=== PATIENT | female | born 2000 | race Caucasian/White ===

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

== ENCOUNTER → 2018-02-15 | Outpatient (CLI) | payer MEDICAID, OTHER ==
--- NOTE | 2018-02-15 17:57 | Diagnostic Imaging Report ---
PROCEDURE: US Non-ob pelvis comp/trans. TECHNIQUE: Multiple realtime grayscale images were obtained of the pelvis in various projections endovaginally. Transabdominal imaging was also performed. INDICATION: Right-sided pelvic pain. FINDINGS: The uterus measures 7.3 x 4.3 x 3.3 cm. The endometrium is 5 mm in thickness. No uterine mass is identified. The right ovary measures 3.8 x 3.6 x 2.7 cm. There is a septated cyst in the right ovary measuring 3.1 x 1.9 x 2.8 cm. There is blood flow to the right ovary. Left ovary was not visualized. There is a small amount of free fluid present. IMPRESSION: Septated right ovarian cyst. There is a small amount of free fluid. The left ovary was not visualized. Dictated by: Dictated on workstation # [id number]
== END ==
LOC: RAD 13:31
PROVIDERS: ATTEND Family Medicine
DX: N83.291 Other ovarian cyst, right side (principal)
CPT/HCPCS: 76830; 76856

== ENCOUNTER → 2018-04-17 | Outpatient (CLI) | payer OTHER, MEDICAID ==
--- NOTE | 2018-04-17 17:14 | Diagnostic Imaging Report ---
PROCEDURE: US OB SINGLE FETUS <14 WKS. TECHNIQUE: Multiple real-time grayscale images were obtained over the gravid uterus in various projections. INDICATION: dating. FINDINGS: There is an intrauterine gestational sac containing a pole. Vega-rump length measurement is approximately 16 mm consistent with 8 weeks 1 day. heart rate was recorded at 174 beats per minute. No perigestational sac hemorrhage is seen. Gestational sac shows normal shape. Adnexa are unremarkable. No adnexal mass or free fluid is seen. IMPRESSION: Single live IUP 8 weeks 1 day gestational age with an estimated date of confinement sonographically of 11/26/2018. No complicating features are detected. Dictated by: Dictated on workstation # [id number]
== END ==
LOC: RAD 15:14
PROVIDERS: ATTEND Family Medicine
DX: Z36.89 Encounter for other specified antenatal screening (principal); Z3A.08 8 weeks gestation of pregnancy
CPT/HCPCS: 76801

== ENCOUNTER → 2018-06-22 | Outpatient (CLI) | payer OTHER, MEDICAID ==
--- NOTE | 2018-06-22 15:11 | Diagnostic Imaging Report ---
INDICATION: survey. TECHNIQUE: Multiple real-time grayscale images were obtained over the gravid uterus. COMPARISON: 04/17/2018. FINDINGS: There is a single live fetus in a cephalic presentation. Placenta is posterior. heart rate was recorded at 149 beats per minute. The amniotic fluid volume is normal. survey demonstrates kidneys, bladder and stomach to be unremarkable. brain is unremarkable. There is a four-chamber heart. There is a three-vessel cord with normal insertion. spine is unremarkable. Biometrical measurements are as follows: Biparietal 4.24 cm, age 18 weeks 6 days. Head circumference 15.78 cm, age 18 weeks 5 days. Abdominal circumference 12.45 cm, age 18 weeks 1 days. Femur length 2.54 cm, age 17 weeks 5 days. Sonographic estimate age: 18 weeks 3 days. Sonographic estimated date of delivery: 11/20/2018. Estimated Weight: 219 gm (+/- 32 gm). LMP percentile: 97%. heart rate: 149 beats per minute. number: 1 of 1. IMPRESSION: Single live IUP approximately 18 weeks 3 days gestational age showing normal interval growth when compared with prior exam. No complicating features are detected. Dictated by: Dictated on workstation # [id number]
== END ==
LOC: RAD 11:16
PROVIDERS: ATTEND Family Medicine
DX: Z36.89 Encounter for other specified antenatal screening (principal); Z3A.18 18 weeks gestation of pregnancy
CPT/HCPCS: 76805

== ENCOUNTER → 2018-09-04 | Outpatient (CLI) | payer OTHER, MEDICAID | LOC: WSo 12:30 | PROVIDERS: ATTEND Family Medicine | DX: Z31.82 Encounter for Rh incompatibility status (principal) | CPT/HCPCS: 96372 ==

== ENCOUNTER 2018-10-12 11:43 | Outpatient (CLI) | payer OTHER, MEDICAID ==
[~2018-10-12] VITALS: Ht 157.5 cm; Wt 72.6 kg
[2018-10-12 11:25] VITALS: BP 124/85
--- NOTE | 2018-10-12 11:25 | NUR ---
WILLOW KIDD presented to unit via AMBULATORY FROM [facility], accompanied by FAMILY, with c/o FALL. WILLOW KIDD weighed, gowned, voided, and to bed. EFHM and TOCO applied, VS taken. WILLOW KIDD oriented to bed controls, call light, TV, heat, and A/C controls.
--- NOTE | 2018-10-12 12:03 | NUR ---
THIS RN CALLS DR CAVAZOS WITH UPDATED PT REPORT. UC 3-6 MIN WITH UTERINE IRRITABILITY. FHT WITH MODERATE VARIABILITY WITH ACCELS WELL VARIABLES. ABD TENDER TO TOUCH ON PT LOWER LEFT SIDE AND TOP OF ABDOMEN. PT STATES FEELING MOVEMENT, NOT MUCH USUAL. DR CARUSO DOES NOT WANT SVE OR IV START YETA T THIS TIME - WANTS TO WAIT UNTIL US RESULTS ARE BACK. US AT BEDSIDE NOW. THIS RN WILL CALL DR CARUSO WITH UPDATED REPORT ONCE US RESULTS BACK.
--- NOTE | 2018-10-12 12:03 | NUR ---
US AT BEDSIDE NOW
--- NOTE | 2018-10-12 12:15 | NUR ---
VERBAL REPORT FROM US TECH: 146 FHT, MICHAEL 8, PLACENTA LOOKS OK (FUNDAL POSITION)
--- NOTE | 2018-10-12 12:19 | NUR ---
THIS RN CALLS DR CARUSO WITH PRELIM RESULTS OF US REPORT: FHT 146, MICHAEL 8, PLACENTA LOOKS GOOD, NO BLEED, IN FUNDAL POSITION. DR CARUSO WANTS RN TO SVE TO MAKE SURE PT IS STILL CLOSED. DR CARUSO IS OKAY WITH PT GOING HOME. STATES HE WAS CONCERNED ABOUT PLACENTAL BLEED AND WANTED TO MAKE SURE REACTIVE FHT WITH ACCELS. FHT ACCELS PRESENT, US SHOWS NO BLEED. THIS RN WILL SVE AND IF CLOSED, WILL DC PT TO HOME. RN WILL HIGHLY EDUCATE PT AND FAMILY ON S/S WHEN TO COME BACK TO OB TO BE EVALUATED. PT AND FAMILY STATES UNDERSTANDING. THIS RN ANSWERS QUESTIONS.
--- NOTE | 2018-10-12 13:05 | Diagnostic Imaging Report ---
INDICATION: Status post fall, abdominal trauma. TECHNIQUE: Multiple limited real-time grayscale images were obtained of the gravid uterus. CORRELATION STUDY: None. FINDINGS: Limited obstetrical sonogram imaging demonstrates an intrauterine currently in cephalic presentation. The placenta is along the posterior fundal aspect. No abnormal perigestational fluid collections. Placenta appearing unremarkable. cardiac activity is 146 beats per minute. Normal amount of amniotic fluid appears to be present, index 8.08. anatomical assessment and/or biomedical growth parameters not performed. IMPRESSION: 1. Limited obstetrical sonogram imaging with an intrauterine currently in cephalic presentation. No findings to suggest acute traumatic abnormality about the . Dictated by: Dictated on workstation # [id number]
--- NOTE | 2018-10-16 19:18 | Physician Query-Final Dx ---
KELY HAMPTON 10/16/18 1918: Final Diagnosis Give Final Diagnosis Please give Final Diagnosis Please give diagnosis and weeks of gestation AMBIKA CARUSO MD 10/22/18 0740: Final Diagnosis Give Final Diagnosis 1. Fall down multiple steps with facial contusion 2. Intrauterine at 34 weeks gestation, reassuring KELY HAMPTON October 16, 2018 19:18 AMBIKA CARUSO MD October 22, 2018 07:40
== END 2018-10-12 12:35 | disposition home or self-care (01) ==
LOC: WSo 11:43 → LDRP 11:44 → WSo 12:35
PROVIDERS: ATTEND Family Medicine
DX: O99.89 Other specified diseases and conditions complicating pregnancy, childbirth and the puerperium (principal); S00.83XA Contusion of other part of head, initial encounter; W10.9XXA Fall (on) (from) unspecified stairs and steps, initial encounter; Z3A.34 34 weeks gestation of pregnancy
CPT/HCPCS: 76815; 99213

== ENCOUNTER 2018-11-08 02:54 | Inpatient (IN) | payer OTHER, MEDICAID ==
[2018-11-08] VITALS (43 sets, daily range): BP systolic 104–142; BP diastolic 54–88
[~2018-11-08] VITALS: Ht 160 cm; Wt 75.4 kg
[2018-11-08] MEDS ORDERED: PREN1TAB79 PO (03:03)
--- NOTE | 2018-11-08 03:03 | NUR ---
WILLOW KIDD presented to unit via ambulation from ED, accompanied by SO, with c/o CONTRACTIONS. WILLOW KIDD weighed, gowned, voided, and to bed. EFHM and TOCO applied, VS taken. WILLOW KIDD oriented to bed controls, call light, TV, heat, and A/C controls.
--- NOTE | 2018-11-08 03:24 | NUR ---
Dr Dodson called and pt made inpt for labor. Pt moved to 320.
[2018-11-08] MEDS ORDERED: D5 LR IV SOLUTION 1,000 ML IV SCH (03:26)
[2018-11-08] MEDS ORDERED: MEPIVACAINE (CARBOCAINE) 2% 50 ML VIAL INJ PRN (03:30)
[2018-11-08] MEDS ORDERED: MINERAL OIL CONCENTRATE 99.9% 15 ML UDC TOP PRN (03:30)
--- NOTE | 2018-11-08 03:32 | NUR ---
Pt moved to labor room, FHR 130, with moderate variability, irregular UC noted pt breathing well through them. Orders changed and pt admission completed at this time.
[2018-11-08] MEDS: LACTATED RINGERS 1,000 ML IV ONE ×2 (04:10→06:10)
[2018-11-08 04:16] LABS: BASOPHILS % (AUTO) 0 % (0-10); EOSINOPHILS # (AUTO) 0.1 10^3/uL (0.0-0.3); EOSINOPHILS % (AUTO) 0 % (0-10); HEMATOCRIT 34 % (35-52); LYMPHOCYTES # (AUTO) 2.1 X 10^3 (1.0-4.0); LYMPHOCYTES % (AUTO) 17 % (12-44); MEAN CORPUSCULAR HEMOGLOBIN 29 PG (25-34); MEAN CORPUSCULAR HGB CONC 33 G/DL (32-36); MEAN CORPUSCULAR VOLUME 89 FL (80-99); MEAN PLATELET VOLUME 9.3 FL (7.4-10.4); MONOCYTES % (AUTO) 8 % (0-12); NEUTROPHILS # (AUTO) 9.2 X 10^3 (1.8-7.8); NEUTROPHILS % (AUTO) 75 % (42-75); PLATELET COUNT 274 10^3/uL (130-400); RED CELL DISTRIBUTION WIDTH 13.9 % (10.0-14.5); WHITE BLOOD COUNT 12.3 10^3/uL (4.3-11.0)
[2018-11-08] MEDS ORDERED: SUFENTA 0.6MCG/ML BUPIVA 0.125 100 ML ONE (04:36)
[2018-11-08] MEDS ORDERED: fentaNYL INJECTION 100 MCG/2 ML AMP ONE (05:55)
[2018-11-08] MEDS ORDERED: CATHETER FLUSH 10 ML SYR IV SCH ×2 (06:00→22:00)
[2018-11-08] MEDS ORDERED: ONDANSETRON 4 MG/2 ML (SDV) Z0FRAN IV PRN (07:00)
[2018-11-08] MEDS ORDERED: CATHETER FLUSH 10 ML SYR IV PRN (07:00)
[2018-11-08] MEDS ORDERED: NALOXONE 0.4 MG/ML 1 ML (NARCAN) VIAL IV PRN (07:00)
[2018-11-08] MEDS ORDERED: EPIDURAL (SUFENTA 0.6MCG/ML BUPIVA 0.125%) 100 ML BAG EPI SCH (07:00)
--- NOTE | 2018-11-08 07:00 | NUR ---
To patient room at this time, patient reports not feeling contractions but now able to move feet when she was not able to prior. When this RN reviewed pump, pump was noted to not have been started per Meka Velasco RN. This RN called Annamarie Davis CRNA to come to floor to review pump settings and start pump.
--- NOTE | 2018-11-08 07:01 | NUR ---
J Reading to patient room and epidural pump started by him.
--- NOTE | 2018-11-08 07:26 | History & Physical-OB ---
OB - Chief Complaint & HPI Date/Time Date of Admission: Date of Admission: Nov 08, 2018 at 03:28 Date seen by a Provider: Nov 08, 2018 Time Seen by a Provider: 07:00 Chief Complaint/History OB-Reason for Admission/Chief: Rupture of Membranes Hx : 1 Hx Para: 0 Expected Date of Delivery: Nov 26, 2018 Gestational Age in Weeks: 37 Gestational Age in Days: 3 Admission Nurse Assessment Rev: Yes History of Labs GBS negative at 36 weeks gestation Allergies and Home Medications Allergies Coded Allergies: red dye (Unverified Allergy, Unknown, 10/09/14) Home Medications Vit W-Ca,Fe,FA(<1 mg) 1 Each Tablet, 1 EACH PO DAILY, (Reported) Patient Home Medication List Home Medication List Reviewed: Yes OB - History Hx of Present Care: Yes Ultrasounds: Normal mid trimester US Obstetrical Complications: None Medical Complications: None Obstetrical History Hx : 1 Delivery History Hx Blood Disorders: No Patient Past Medical History no chronic medical problems Social History/Family History Recent Infectious Disease Expo: No Alcohol Use: Denies Use Recreational Drug Use: No OB - Admission Exam Physical Exam Vitals: Vital Signs 11/08/18 11/08/18 03:31 06:00 Temp 97.1 Pulse 89 Resp 20 B/P (MAP) 122/88 (99) Pulse Ox 100 O2 Delivery Room Air HEENT: Moist Membranes Heart: Rhythm Normal Lungs: Clear Abdomen: Gravid Extremities: Normal Cervical Dilatation: 5cm (on admission) Effacement: 75% Membranes: Ruptured Amniotic Fluid: Clear Heart Rate: 140's Accelerations: Accelerations Present Decelerations: No Decelerations Short Term Variability: Present [facility] Variability: Average (6-25) Contractions on Admission: < 5 Minutes Apart Intensity: Moderate Labs Laboratory Tests Test 11/08/18 04:00 Range/Units White Blood Count 12.3 H 4.3-11.0 10^3/uL Red Blood Count 3.82 L 4.35-5.85 10^6/uL Hemoglobin 11.0 L 11.5-16.0 G/DL Hematocrit 34 L 35-52 % Mean Corpuscular Volume 89 80-99 FL Mean Corpuscular Hemoglobin 29 25-34 PG Mean Corpuscular Hemoglobin Concent 33 32-36 G/DL Red Cell Distribution Width 13.9 10.0-14.5 % Platelet Count 274 130-400 10^3/uL Mean Platelet Volume 9.3 7.4-10.4 FL Neutrophils (%) (Auto) 75 42-75 % Lymphocytes (%) (Auto) 17 12-44 % Monocytes (%) (Auto) 8 0-12 % Eosinophils (%) (Auto) 0 0-10 % Basophils (%) (Auto) 0 0-10 % Neutrophils # (Auto) 9.2 H 1.8-7.8 X 10^3 Lymphocytes # (Auto) 2.1 1.0-4.0 X 10^3 Monocytes # (Auto) 1.0 0.0-1.0 X 10^3 Eosinophils # (Auto) 0.1 0.0-0.3 10^3/uL Basophils # (Auto) 0.0 0.0-0.1 10^3/uL OB - Assessment/Plan/Diagnosis Assessment Assessment: active labor, rupture of membranes Admission Dx IUP at 37 weeks 3 days with SROM and in active labor Admission Status: Inpatient Order (span 2 midnights) Reason for Inpatient Admission: Labor managment Plan Plan: Expectant Management Other Plan -desires epidural AMBIKA CARUSO MD Nov 08, 2018 07:26
--- NOTE | 2018-11-08 07:30 | NUR ---
THIS RN AT BEDSIDE. INTRODUCES SELF TO PT AND SO. PHYSICAL ASSESSMENT COMPLETE, PLAN OF CARE DISCUSSED WITH PT. QUESTIONS ANSWERED. CALL LIGHT WITHIN REACH. PT DENIES NEEDS AT THIS TIME.
--- NOTE | 2018-11-08 08:07 | NUR ---
DR CARUSO CALLED THIS RN. DR CASANOVA PT HAS HISTORY OF MITRAL VALVE PROLAPSE AND WOULD LIKE TO ADMIN ONE DOSE OF AMPICILLIN 2G AT THIS TIME.
[2018-11-08] MEDS ORDERED: AMPICILLIN FOR IV USE 2,000 MG in WATER (STERILE) FOR INJECTION 14.8 ML IV ONE (08:15)
--- NOTE | 2018-11-08 09:25 | NUR ---
DR CARUSO CALLED THIS RN FOR UPDATED PT REPORT. SVE /-1, RN HAS SAT PT STRAIGHT UP IN BED TO LABOR DOWN. UC PATTERN ABOUT 2-[address] CARUSO STATES IF UC SPACE OUT ANY MORE, MAY START PITOCIN 2X2X15
--- NOTE | 2018-11-08 10:10 | NUR ---
DR CARUSO AT BEDSIDE FOR PT EVALUATION. SVE BY DR CARUSO. 10CM. PRACTICE PUSH WITH DR CARUSO AT 1014, DC YUSUF CATHETER 1019. ROOM SETUP FOR DELIVERY. DR CARUSO REMAINS AT BEDSIDE TO PUSH WITH PT.
[2018-11-08] MEDS ORDERED: OXYTOCIN/NORMAL SALINE 500 ML IV ONE (10:21)
--- NOTE | 2018-11-08 12:20 | NUR ---
DR ZULY SAGASTUME AT BEDSIDE, PUSHING WITH PT WITH THIS RN. LC RN AT BEDSIDE FOR DELIVERY.
--- NOTE | 2018-11-08 13:00 | NUR ---
1300: DELIVERY OF HEAD VIA VACCUM (POPOFF X1) BY DR CARUSO 1301: VAGINAL DELIVERY OF MALE INFANT. INFANT SUCTIONED WITH BULB SYRINGE BY DR CARUSO. PLACED ON MOTHERS ABDOMEN. 1302: CORD CLAMPED BY AND CUT BY FOB. INFANT DRIED, STIMULATED, AND ASSESSED BY LC AT BEDSIDE 1306: PLACENTA DELIVERED SPONTANEOUSLY BY DR CARUSO. PITOCIN STARTED PER VERBAL ORDER OF DR CARUSO. 1310: RECOVERY PERIOD BEGINS AT THIS TIME. SCANT-LIGHT BLEEDING AT THIS TIME, FUNDUS FIRM, MIDLINE, 2 BELOW UMBILICUS. PT DENIES NEEDS AT THIS TIME. THIS RN DOES PERICARE AND LINEN CHANGE. PT OUT OF STIRRUPS AND BED PUT BACK TOGETHER. INFANT WRAPPED AND IN FOB ARMS. CALL LIGHT WITHIN REACH.
--- NOTE | 2018-11-08 13:10 | NUR ---
1310: RECOVERY PERIOD BEGINS AT THIS TIME. FUNDUS FIRM, MIDLINE, SCANT BLEEDING, 2 BELOW UMBILICUS. PERICARE DONE BY THIS RN. VSS. PT DENIES PAIN OR NEEDS AT THIS TIME. CALL LIGHT WITHIN REACH. 1325: FUNDUS FIRM, MIDLINE, SCANT BLEEDING, 2 BELOW UMBILICUS. VSS. PT DENIES PAIN OR NEEDS AT THIS TIME. CALL LIGHT WITHIN REACH. VISITORS AT BEDSIDE. 1340:FUNDUS FIRM, MIDLINE, SCANT BLEEDING, 2 BELOW UMBILICUS. VSS. PT DENIES PAIN OR NEEDS AT THIS TIME. CALL LIGHT WITHIN REACH. VISITORS AT BEDSIDE. 1355:FUNDUS FIRM, MIDLINE, SCANT BLEEDING, 2 BELOW UMBILICUS. VSS. PT DENIES PAIN OR NEEDS AT THIS TIME. CALL LIGHT WITHIN REACH. PT . 1410:FUNDUS FIRM, MIDLINE, SCANT BLEEDING, 2 BELOW UMBILICUS. VSS. PT DENIES PAIN OR NEEDS AT THIS TIME. CALL LIGHT WITHIN REACH. PT INFANT. 1426:FUNDUS FIRM, MIDLINE, SCANT BLEEDING, 2 BELOW UMBILICUS. VSS. PT DENIES PAIN OR NEEDS AT THIS TIME. CALL LIGHT WITHIN REACH. . 1441:FUNDUS FIRM, MIDLINE, SCANT BLEEDING, 2 BELOW UMBILICUS. VSS. PT DENIES PAIN OR NEEDS AT THIS TIME. CALL LIGHT WITHIN REACH. PERICARE DONE BY THIS RN. PREPARED TO MOVE TO ROOM.
[2018-11-08] MEDS ORDERED: OXYTOCIN/NORMAL SALINE 500 ML IV SCH (14:50)
--- NOTE | 2018-11-08 14:53 | OB Labor & Delivery Record ---
L&D History Date of Service Date of Service: Nov 08, 2018 History Expected Date of Delivery: Nov 26, 2018 Gestational Age in Weeks: 37 Hx : 1 Hx Para: 0 Complications Events: Routine care Operative Indications (Cesarea: N/A-Vaginal Delivery Intrapartal Events: None L&D Stage1 Stage One Onset of Labor - Date: Nov 08, 2018 Onset of Labor - Time: 01:00 Monitors and Tracing Monitor Mode: External Heart Rate: 140 Monitor Accelerations: Uniform Station: -1 Long-Term Variability: Absent (0-2) Short Term Variability: Present Presentation: Vertex Vital Signs VS - Last 72 Hours, by Label 11/08/18 11/08/18 11/08/18 11/08/18 03:31 04:15 05:00 05:15 Temp 97.1 97.4 Pulse 83 76 88 Resp 20 20 20 B/P (MAP) 120/70 (87) 132/60 (84) 133/73 (93) O2 Delivery Room Air Room Air Room Air 11/08/18 11/08/18 11/08/18 11/08/18 05:20 05:35 05:40 05:45 Pulse 100 88 84 90 Resp 20 20 20 20 B/P (MAP) 142/73 (96) 133/86 (102) 130/67 (88) 133/84 (100) Pulse Ox 97 98 97 97 O2 Delivery Room Air Room Air Room Air Room Air 11/08/18 11/08/18 11/08/18 11/08/18 05:47 05:53 05:56 06:00 Pulse 90 87 123 89 Resp 20 20 20 20 B/P (MAP) 132/69 (90) 138/75 (96) 125/58 (80) 122/88 (99) Pulse Ox 97 97 99 100 O2 Delivery Room Air Room Air Room Air Room Air 11/08/18 11/08/18 11/08/18 11/08/18 06:15 06:20 06:30 06:45 Pulse 87 98 114 80 Resp 20 20 20 20 B/P (MAP) 126/69 (88) 137/64 (88) 125/67 (86) 120/73 (89) Pulse Ox 100 97 100 100 O2 Delivery Room Air Room Air Room Air Room Air 11/08/18 11/08/18 11/08/18 11/08/18 07:00 07:15 07:30 07:45 Temp 96.8 Pulse 102 90 85 76 Resp 20 18 B/P (MAP) 104/54 (71) 104/54 (71) 126/62 (83) 119/63 (81) Pulse Ox 100 99 98 98 O2 Delivery Room Air Room Air Room Air Room Air 11/08/18 11/08/18 11/08/18 11/08/18 08:00 08:15 08:30 08:45 Pulse 77 75 90 80 B/P (MAP) 126/62 (83) 114/72 (86) 120/70 (87) 118/64 (82) Pulse Ox 98 O2 Delivery Room Air Room Air Room Air Room Air 11/08/18 11/08/18 11/08/18 11/08/18 09:00 09:15 09:30 09:45 Temp 97.6 Pulse 95 106 104 Resp 18 B/P (MAP) 117/61 (79) 111/66 (81) 115/84 (94) O2 Delivery Room Air Room Air Room Air Room Air 11/08/18 10:00 Pulse 98 B/P (MAP) 119/77 (91) O2 Delivery Room Air Signs of Distress by FHT Signs of Distress o Rupture of Membranes Spontaneous Ruture of Membrane: Yes Amniotic Membrane Rupture Time: 0130 Amniotic Membrane Fluid Desc.: Clear Amniotic Fluid Membrane Tests: Nitrazine Positive Induction/Anesthesia Epidural Cath Placement - Time: 0547 L&D Stage2 Stage Two Stage II Date: Nov 08, 2018 Stage II Time: 13:01 Monitors and Tracing Monitor Mode: External Heart Rate: 140 Monitor Accelerations: Uniform Monitor Decelerations: None Long-Term Variability: Average (6-10) Short Term Variability: Present Position: Left Occiput Transverse Signs of Distress by FHT Signs of Distress no Cord Descript/Complications Cord Vessel Description: 3 Vessels Delivery Type Delivery Method: Low Vacuum Extraction Anterior Shoulder: Left Episiotomy/Perineal Laceration Laceraction(s)/Extensions: Yes Episiotomy Description: Midline Sutures Used: Vicryl Condition of Delivery 1 minute Comment: 8 5 minute Comment: 9 Condition of Infant Condition of : Living Exam: No Observed Abnormalities Resuscitation Resuscitation: N/A - Spontaneous Resp L&D Stage3 Stage Three Stage III Date: Nov 08, 2018 Stage III Time: 13:05 Pictocin Pitocin ml/hr: 125 Placenta Delivery Placenta Delivery: Spontaneous Delivery Summary Summary Estimated blood loss (mL): 350 Condition of Delivery Examined: Cervix Examined Post Hemorrhage: No Intervention Required none AMBIKA CARUSO MD Nov 08, 2018 14:53
[2018-11-08] MEDS ORDERED: WITCH HAZEL(TUCKS) 40 EA JAR ONE (14:59)
[2018-11-08] MEDS ORDERED: BENZOCAINE/MENTHOL (DERMOPLAST) 56 ML CAN TP ONE (14:59)
[2018-11-08] MEDS ORDERED: BENZOCAINE/MENTHOL (DERMOPLAST) 56 ML CAN TP PRN (15:00)
[2018-11-08] MEDS ORDERED: WITCH HAZEL(TUCKS) 40 EA JAR TOP PRN (15:00)
[2018-11-08] MEDS ORDERED: MEASLES,MUMPS,RUBELLA 1 EA INJ SQ ONE (15:00)
[2018-11-08] MEDS ORDERED: TETANUS,DIPTH,PERTUSS P/F (BOOSTRIX) 0.5 ML VIAL IM ONE (15:00)
--- NOTE | 2018-11-08 17:40 | NUR ---
Report rec'd from Khoa Ly RN
[2018-11-08] MEDS ORDERED: IBUPROFEN 600 MG (MOTRIN) TAB PO SCH (18:00)
--- NOTE | 2018-11-08 18:00 | NUR ---
Pt assisted up to bathroom at this time via ambulation. +void. Pericare demonstrated per this RN. Fresh vpad and underwear applied. Pt assisted back to bed without incident. Denies further needs or concerns.
--- NOTE | 2018-11-08 19:30 | NUR ---
Patient up in room after voiding in restroom. Patient states she feels steady on her feet. VS and assessment completed. Fresh ice water provided. S/O at bedside holding . POC reviewed with patient and s/o. No further needs or concerns voiced. Call light within reach. Will continue to monitor closely.
[2018-11-08] MEDS: DOCUSATE SODIUM 100 MG (COLACE) CAP PO SCH (20:59)
[2018-11-08] MEDS: IBUPROFEN 600 MG (MOTRIN) TAB PO SCH (21:00)
[2018-11-09 00:10] VITALS: BP 110/73
[2018-11-09] MEDS: IBUPROFEN 600 MG (MOTRIN) TAB PO SCH ×2 (03:28→10:45)
[2018-11-09 03:29] VITALS: BP 111/71
[2018-11-09 06:31] LABS: BASOPHILS % (AUTO) 0 % (0-10); EOSINOPHILS % (AUTO) 0 % (0-10); HEMATOCRIT 28 % (35-52); HEMOGLOBIN 9.6 G/DL (11.5-16.0); LYMPHOCYTES # (AUTO) 1.8 X 10^3 (1.0-4.0); LYMPHOCYTES % (AUTO) 15 % (12-44); MEAN CORPUSCULAR HEMOGLOBIN 31 PG (25-34); MEAN CORPUSCULAR HGB CONC 34 G/DL (32-36); MEAN CORPUSCULAR VOLUME 90 FL (80-99); MEAN PLATELET VOLUME 9.1 FL (7.4-10.4); MONOCYTES # (AUTO) 0.8 X 10^3 (0.0-1.0); MONOCYTES % (AUTO) 7 % (0-12); NEUTROPHILS # (AUTO) 9.3 X 10^3 (1.8-7.8); NEUTROPHILS % (AUTO) 78 % (42-75); PLATELET COUNT 186 10^3/uL (130-400); RED CELL DISTRIBUTION WIDTH 13.7 % (10.0-14.5)
[2018-11-09 10:35] VITALS: BP 111/73
[2018-11-09] MEDS: DOCUSATE SODIUM 100 MG (COLACE) CAP PO SCH (10:45)
--- NOTE | 2018-11-09 11:27 | Anesthesia-Regional Post-Op ---
Regional Patient Condition Mental Status: Alert, Oriented x3 Circulation: Same as Pre-Op Headache: Absent Sensation: Full Recovery Motor Block: Absent Post Op Complications Complications None Follow Up Care/Instructions Patient Instructions None needed. Anesthesia/Patient Condition Patient is doing well, no complaints, stable vital signs, no apparent adverse anesthesia problems. No complications reported per nursing. CHRISTINA ADDISON CRNA Nov 09, 2018 11:27
--- NOTE | 2018-11-09 14:30 | Discharge Inst-Women's Service ---
Discharge Inst-Women's Serv Depart Medication/Instructions Instructions May use 2-3 ibuprofen 200mg every 8hrs for cramping. Consults/Follow Up Additional Follow Up: Yes (Dr Caruso in 6 weeks.) Activity Activity: Activity as Tolerated Driving Instructions: You May Drive Nothing Inside Vagina: No [place] (for 6 weeks.) Diet Discharge Diet: Regular Diet Return to The Hospital For: as below Symptoms to Report to : Bleeding Excessive, Pain Increased, Fever Over 101 Degrees F, Vaginal Discharge Foul For Any Problems or Questions: Contact Your Physician AMBIKA CARUSO MD Nov 09, 2018 14:30
--- NOTE | 2018-11-09 14:40 | Discharge Summary ---
Diagnosis/Chief Complaint Date of Admission Nov 08, 2018 at 03:28 Date of Discharge November 09, 2018 Discharge Date: Nov 09, 2018 Discharge Time: 15:00 Admission Diagnosis Admission Diagnosis 1. Intrauterine at 37 weeks gestation Discharge Diagnosis 1. Intrauterine at 37 weeks gestation Reason Hospital Visit 18-year-old 1 now term 1 female who initially presented to labor and delivery during the interior design professional of November 08, 2018 with spontaneous rupture of membranes and labor. Patient was noted to be dilated to 4 cm upon presentation. She was noted to be at 37 weeks 3 days gestation. Her care was essentially unremarkable She had a negative GBS at 36 weeks gestation by vaginal swab. Discharge Summary-OBS Procedures 1. Epidural per anesthesia 2. Suction-assisted vertex vaginal delivery 3. Repair of midline episiotomy was second-degree extension Discharge Physical Examination Allergies: Coded Allergies: red dye (Unverified Allergy, Unknown, 10/09/14) Vitals & I&Os Vital Signs Date Time Temp Pulse Resp B/P (MAP) Pulse Ox O2 Delivery O2 Flow Rate FiO2 11/09/18 03:29 97.8 70 18 111/71 (84) 98 Room Air General Appearance: No Acute Distress HEENT: Mucous Memb Moist/[place] Respiratory: Normal Air Movement Cardiovascular: Regular Rate Abdominal: Soft (with uterus firm) Extremities: No Edema Skin: No Significant Lesion Psych/Mental Status: Mental Status NL Hospital Course upon presentation she was noted to be in active labor. She received epidural per anesthesia and tolerated well. She did not require Pitocin augmentation. Her hemoglobin at the time of admission was 11.0. Ultimately she went on to completion and was allowed to push. Ultimately after 2-1/2 hours of pushing she delivered a term viable male. If it received Apgars of 8 at 1 minute and 9 at 5 minutes. Delivery was accomplished with suction assistance. The delivery occurred on November 08, 2018 at 1301. Following delivery she underwent routine care orders. She had no complications during the remainder of hospital stay. She breast-fed her infant male without difficulty. She tolerated regular diet. She had hemoglobin on day of dismissal of 9.6. She was instructed to follow-up in 6 weeks for herself and call me if complications which were reviewed with her. Discharge Instructions to patient/family Please see electronic discharge instructions given to patient. Discharge Medications Reviewed and agree with Discharge Medication list on patient's Discharge Instruction sheet Clinical Quality Measures DVT/VTE Risk/Contraindication: Risk Factor Score Per Nursin RFS Level Per Nursing on Admit: 1=Low/No VTE PPX AMBIKA CARUSO MD Nov 09, 2018 14:40
== END 2018-11-09 16:45 | disposition home or self-care (01) | DRG 807 ==
LOC: WSo 02:54 → LDRP 03:28
PROVIDERS: ADMIT Family Medicine; ATTEND Family Medicine
PROC: 10D07Z6 Extraction of Products of Conception, Vacuum, Via Natural or Artificial Opening (ICD-10-PCS; principal; 2018-11-08)
PROC: 0W8NXZZ Division of Female Perineum, External Approach (ICD-10-PCS; 2018-11-08)
DX: O80 Encounter for full-term uncomplicated delivery (principal); Z3A.37 37 weeks gestation of pregnancy; Z37.0 Single live birth
CPT/HCPCS: 36415; 85025; 86850; 86900; 86901; 99212

== ENCOUNTER 2022-04-20 06:00 | Inpatient (IN) | payer BC ==
[~2022-04-20] VITALS: Ht 164 cm; Wt 87.2 kg
[2022-04-20] VITALS (28 sets, daily range): BP systolic 103–140; BP diastolic 57–94
[~2022-04-20 06:00] MED LIST: PREN1TAB79 PO
--- OUTSIDE RECORDS SUMMARY | 2022-04-20 06:15 | XMS REPORT | Clinical Summary ---
Author Author [facility] Organization [facility] Address Unknown Phone Unavailable Care Team Providers Care Ergonomic Specialist Name Role Phone Aime Haines MD Unavailable Monroe Dodson MD PCP Source Comments Some departments are not documenting in the electronic medical record. If you d o not see the information that you expected, contact Release of Information in [facility] Health Information Management department at [phone] for further assistan ce in locating additional records.[facility] Allergies Comments Active Allergy Reactions Severity Noted Date Red Dye RASH 04/01/2014 Medications End Date Status Medication Sig Dispensed Refills Start Date Active meloxicam (MOBIC) 7.5 mg Take 1 Tab by 60 Tab 1 tablet mouth daily. 7 Active norgestimate/ethinyl Take 1 tablet 0 estradiol(+) (ORTHO by mouth TRI-CYCLEN; TRI-SPRINTEC) daily. .18/.215/.25-35 mg-mcg (28) tablet Active Problems Problem Noted Date Right shoulder pain 03/03/2017 Family history of mitral valve prolapse 04/01/2014 Overview: Ronna's mother has mitral valve prola pse. Last Assessment & Plan: Formatting of t his note might be different from the original. Today's follow-up echocardiogram showed no evidence of mitral valve prolapse. Chest pain 04/01/2014 Overview: Ronna has complained of chest pain at rest and with exertion L ast Assessment & Plan: Formatting of th is note might be different from the original. We saw Ronna for assessment of chest pain. Our assessment included: a limited Echocardiogram. Limited Echoca rdiogram showed: normal coronary arteries. normal left ventricular size and function, no pericardial effusion, and no evidence of mitral latrice ve prolapse. Today's evaluation showed no apparent cardiac cause for ch est pain. The physical examination was normal. Chest wall tenderness was elicited with palpation. Based on the history, it is unlikely that Jessika shaw has a significant dysrhythmia as the cause of chest pain. The most like ly cause of her chest pain is costochondritis. We have not scheduled Ronna for a fol low-up visit. Regarding physical activity, we have recommended: No restr ictions. We also have recommended use of naprosyn or other NSAID for two or so weeks to reduce inflammation. We discussed today's evaluation with Ila aldrich and Ronna's mother. Orthostatic dizziness 04/01/2014 Overview: Ronna has dizziness (near or pre-sync ope) when she stands quickly from a sitting or supine position. She has no t fainted. Last Assessment & Plan: Formatting of t his note might be different from the original. We saw Ronna today for evaluation of near-syncope, or orthostatic pre-syncope. Our assessment included: a limited echocardiogram. The limited echocardiogram showed normal le ft ventricular size and function. We also did orthostatis blood pressures . There was no decrease in blood pressure, but her heart rate increased from 60 to 101 immediately on standing. Based on today's evaluation , the most probable cause of syncope is orthostatic hypotension. PLAN -Increase water intake to 2-3 liters p er day. -Patient should drink enough water that all voids, except director of early childhood voids, are clear. -Take a couple of salty snacks througho ut the day (ex. pretzels, pickles). -Avoid getting up suddenly from recumbe nt position. -Regular exercise including strength ex ercise for leg. We discussed our recommendations with Raeann malcolm and with Ronna's mother. We have not scheduled Ronna for routi richard follow-up. I discussed use of medications (fludrocortisone or midodri ne) if more conservative measures do not help, and we would be happy to see her again. Social History Date Tobacco Use Types Packs/Day Years Used Smoking Tobacco: Never Smokeless Tobacco: Never Comments Alcohol Use Standard Drinks/Week No 0 (1 standard drink = 0.6 o z pure alcohol) Sex Assigned at Date Recorded Not on file Obstetrics History Last Filed Vital Signs Reading Time Taken Comments Vital Sign 112/66 02/27/2017 3:57 PM CDT Blood Pressure 68 02/27/2017 3:57 PM CDT Pulse - - Temperature 16 02/27/2017 3:57 PM CDT Respiratory Rate 100% 02/27/2017 3:57 PM CDT Oxygen Saturation - - Inhaled Oxygen Concentration 62.6 kg (138 lb) 02/27/2017 3:57 PM CDT Weight 160 cm (5' 3") 02/27/2017 3:57 PM CDT Height 24.45 02/27/2017 3:57 PM CDT Body Mass Index Plan of Treatment Health Maintenance Due Date Last Done Comments CHLAMYDIA SCREENING 18-24 1998 YEARS COVID-19 VACCINE (#1) 1998 HPV VACCINES (1 - 2-dose 2009 series) HIV SCREENING 2013 DTAP/TDAP VACCINES (1 - 02/23/2016 Tdap) HEPATITIS C SCREENING 02/23/2016 PHYSICAL (COMPREHENSIVE) 02/23/2016 EXAM CERVICAL CANCER SCREENING 2019 DEPRESSION SCREENING 06/05/2021 INFLUENZA VACCINE 01/03/2022 Results Not on filefrom Last 3 Months Care Teams Start Date End Date Ergonomic Specialist Relationship Specialty 10/24/16 Monroe Dodson MD PCP - General Family [address] [facility] [address] [place] [address] 04/01/14 Aime Haines MD Pediatric [address] [place] [address]
[2022-04-20] MEDS ORDERED: D5 LR IV SOLUTION 1,000 ML IV ONE (06:43)
[2022-04-20] MEDS ORDERED: OXYTOCIN PRE-MIX DRIP 500 ML IV SCH ×3 (06:45→11:00)
[2022-04-20] MEDS ORDERED: D5 LR IV SOLUTION 1,000 ML IV SCH (06:45)
[2022-04-20] MEDS ORDERED: LIDOCAINE 1% INJ 20 ML VIAL IJ PRN (06:45)
--- NOTE | 2022-04-20 06:54 | History & Physical-OB ---
OB - Chief Complaint & HPI Date/Time Date of Admission: Date of Admission: Apr 20, 2022 at 06:03 Date seen by a Provider: Apr 20, 2022 Time Seen by a Provider: 06:45 Chief Complaint/History OB-Reason for Admission/Chief: Induction of Labor Hx : 2 Hx Para: 1 Expected Date of Delivery: Apr 27, 2022 Gestational Age in Weeks: 39 Gestational Age in Days: 0 Admission Nurse Assessment Rev: Yes History of Labs GBS negative Allergies and Home Medications Allergies Coded Allergies: red dye (Unverified Allergy, Unknown, 10/09/14) Patient Home Medication List Home Medication List Reviewed: Yes Vit W-Ca,Fe,FA(<1 mg) ( Vitamins) 1 Each Tablet, 1 EACH PO DAILY, (Reported) Entered as Reported by: GABBY CHRISTOPHER on 11/08/18 0303 OB - History Hx of Present Care: Yes Ultrasounds: Normal mid trimester US Obstetrical Complications: None Medical Complications: None Delivery History Hx Blood Disorders: No Patient Past Medical History no chronic medical problems OB - Admission Exam Physical Exam HEENT: Moist Membranes Heart: Rhythm Normal Lungs: Clear Abdomen: Gravid Cervical Dilatation: 1cm Effacement: 75% Station: -3 Membranes: Intact Heart Rate: 140's Accelerations: Accelerations Present Decelerations: No Decelerations Fci Variability: Average (6-25) Contractions on Admission: >10 Minutes Apart Intensity: Mild Burton Scoring Tool (Modified) Dilation (cm): 1-2cm (1) Effacement (%): 51-79% (2) Descent/Station: -3 (0) Cervix Consistency: Soft (2) Cervix Position: Middle/Mid-Position (1) Add 1 point for: Each previous vaginal delivery (1) Burton Score: 7 OB - Assessment/Plan/Diagnosis Assessment Assessment: induction of labor Admission Dx 1. IUP at term 39 weeks. Admission Status: Inpatient Order (span 2 midnights) Reason for Inpatient Admission: L&D Plan Plan: Induction Induction Method: AROM Other Plan -pitocin -epidural AMBIKA CARUSO MD Apr 20, 2022 06:54
[2022-04-20 07:04] LABS: BASOPHILS % (AUTO) 0 % (0-10); EOSINOPHILS % (AUTO) 0 % (0-10); HEMATOCRIT 35 % (35-52); HEMOGLOBIN 12.2 g/dL (11.5-16.0); LYMPHOCYTES # (AUTO) 1.8 10^3/uL (1.0-4.0); LYMPHOCYTES % (AUTO) 19 % (12-44); MEAN CORPUSCULAR HEMOGLOBIN 30 pg (25-34); MEAN CORPUSCULAR HGB CONC 35 g/dL (32-36); MEAN CORPUSCULAR VOLUME 87 fL (80-99); MEAN PLATELET VOLUME 9.3 fL (9.0-12.2); MONOCYTES # (AUTO) 0.5 10^3/uL (0.0-1.0); MONOCYTES % (AUTO) 6 % (0-12); NEUTROPHILS % (AUTO) 74 % (42-75); PLATELET COUNT 238 10^3/uL (130-400); WHITE BLOOD COUNT 9.5 10^3/uL (4.3-11.0)
[2022-04-20] MEDS ORDERED: fentaNYL 2 mcg/ml BUPIVA 0.125 100 ML ONE (07:30)
[2022-04-20] MEDS ORDERED: LACTATED RINGERS 1,000 ML IV ONE (07:30)
[2022-04-20] MEDS ORDERED: BUPIVACAINE 0.25% 30 ML (SENSORCAINE) VIAL ONE (07:55)
[2022-04-20] MEDS ORDERED: fentaNYL INJ 100 MCG/2 ML AMP ONE (07:55)
[2022-04-20] MEDS ORDERED: WITCH HAZEL(TUCKS) 40 EA JAR TOP PRN (11:00)
[2022-04-20] MEDS ORDERED: BENZOCAINE/MENTHOL (DERMOPLAST) 56 ML CAN TP PRN (11:00)
--- NOTE | 2022-04-20 11:01 | OB Labor & Delivery Record ---
L&D History Date of Service Date of Service: Apr 20, 2022 History Expected Date of Delivery: Apr 27, 2022 Gestational Age in Weeks: 39 Hx : 2 Hx Para: 2 Complications Events: Routine care Operative Indications (Cesarea: N/A-Vaginal Delivery Intrapartal Events: None L&D Stage1 Stage One Onset of Labor - Date: Apr 20, 2022 Onset of Labor - Time: 06:45 Monitors and Tracing Monitor Mode: Internal Heart Rate: 135 Monitor Accelerations: Uniform Monitor Decelerations: None Station: -3 Hand Roller Engraver Variability: Average (6-10) Short Term Variability: Present Presentation: Vertex Vital Signs VS - Last 72 Hours, by Label 04/20/22 06:20 Temp 36.0 Pulse 86 Resp 18 Pulse Ox 98 O2 Delivery Room Air Signs of Distress by FHT Signs of Distress no Rupture of Membranes Spontaneous Ruture of Membrane: No Amniotic Membrane Rupture Time: 0645 Amniotic Membrane Fluid Desc.: Clear L&D Stage2 Stage Two Stage II Date: Apr 20, 2022 Stage II Time: 09:46 Monitors and Tracing Monitor Mode: Internal Heart Rate: 135 Monitor Accelerations: Uniform Longterm Variability: Average (6-10) Short Term Variability: Present Position: Left Occiput Anterior Presentation: Vertex Signs of Distress by FHT Signs of Distress no Cord Descript/Complications Cord Vessel Description: 3 Vessels Delivery Type Infant Delivery Method: Spontaneous Vaginal Anterior Shoulder: Left Episiotomy/Perineal Laceration Laceraction(s)/Extensions: No Condition of Delivery 1 minute Comment: 8 5 minute Comment: 9 Condition of Infant Condition of : Living Exam: No Observed Abnormalities Resuscitation Resuscitation: N/A - Spontaneous Resp L&D Stage3 Stage Three Stage III Date: Apr 20, 2022 Stage III Time: 09:51 Pictocin Pitocin ml/hr: 125 Placenta Delivery Placenta Delivery: Spontaneous Delivery Summary Summary Estimated blood loss (mL): 100 Condition of Delivery Examined: Cervix Examined Post Hemorrhage: No Intervention Required none AMBIKA CARUSO MD Apr 20, 2022 11:01
[2022-04-20] MEDS: ACETAMINOPHEN 500 MG TAB (TYLENOL) PO SCH ×2 (13:46→20:06)
[2022-04-20] MEDS: IBUPROFEN 600 MG (MOTRIN) TAB PO SCH ×2 (13:46→20:06)
[2022-04-20] MEDS ORDERED: CATHETER FLUSH 10 ML SYR IV SCH (14:00)
[2022-04-20] MEDS: DOCUSATE SODIUM 100 MG (COLACE) CAP PO SCH (20:06)
[2022-04-21] MEDS: IBUPROFEN 600 MG (MOTRIN) TAB PO SCH ×2 (01:23→11:09)
[2022-04-21] MEDS: ACETAMINOPHEN 500 MG TAB (TYLENOL) PO SCH ×2 (01:24→11:10)
[2022-04-21 01:25] VITALS: BP 107/58
[2022-04-21 05:30] VITALS: BP 111/59
[2022-04-21 05:58] LABS: BASOPHILS % (AUTO) 0 % (0-10); EOSINOPHILS # (AUTO) 0.1 10^3/uL (0.0-0.3); EOSINOPHILS % (AUTO) 1 % (0-10); HEMATOCRIT 31 % (35-52); HEMOGLOBIN 10.7 g/dL (11.5-16.0); LYMPHOCYTES % (AUTO) 19 % (12-44); MEAN CORPUSCULAR HEMOGLOBIN 30 pg (25-34); MEAN CORPUSCULAR HGB CONC 35 g/dL (32-36); MEAN CORPUSCULAR VOLUME 88 fL (80-99); MEAN PLATELET VOLUME 9.1 fL (9.0-12.2); MONOCYTES # (AUTO) 0.6 10^3/uL (0.0-1.0); MONOCYTES % (AUTO) 6 % (0-12); NEUTROPHILS # (AUTO) 7.6 10^3/uL (1.8-7.8); NEUTROPHILS % (AUTO) 73 % (42-75); PLATELET COUNT 176 10^3/uL (130-400); WHITE BLOOD COUNT 10.4 10^3/uL (4.3-11.0)
[2022-04-21] MEDS ORDERED: PRENATAL VITAMIN 1 EA TAB PO SCH (07:00)
--- NOTE | 2022-04-21 08:00 | Discharge Inst-Women's Service ---
Discharge Inst-Women's Serv Depart Medication/Instructions New, Converted or Re-Newed RX: Other Instructions May take [id number] ibuprofen 200 mg tablets, 2 or 3 every 6 hours for cramps. Problems Reviewed?: Yes Consults/Follow Up Additional Follow Up: Yes (Dr. Caruso at [facility] in 6 weeks) Activity Nothing Inside Vagina: No [place] (for 6 weeks) Diet Discharge Diet: Regular Diet Return to The Hospital For: as below Symptoms to Report to : Swelling Increased, Bleeding Excessive, Fever Over 101 Degrees F, Vaginal Discharge Foul For Any Problems or Questions: Contact Your Physician AMBIKA CARUSO MD Apr 21, 2022 08:00
--- NOTE | 2022-04-21 08:04 | Discharge Summary ---
Diagnosis/Chief Complaint Date of Admission Apr 20, 2022 at 06:03 Date of Discharge April 21, 2022 Admission Diagnosis Admission Diagnosis 1. Intrauterine at term 39 weeks Discharge Diagnosis 1. Intrauterine at term 39 weeks Chief Complaint/HPI Chief Complaint/HPI 22-year-old 2 now term 2 L2 who initially presents to liver and delivery during the morning of April 20, 2022 for induction of labor. Her care was obtained through [facility] and was essentially unremarkable. Her EDC was April 27, 2022. GBS status negative. Discharge Summary-OBS Procedures 1. Epidural per anesthesia 2 Spontaneous vaginal delivery Discharge Physical Examination Allergies: Coded Allergies: red dye (Unverified Allergy, Unknown, 10/09/14) Vitals & I&Os Intake and Output 04/21/22 00:00 Intake Total 500 ml Balance 500 ml Vital Sign - Last 12Hours Date Time Temp Pulse Resp B/P (MAP) Pulse Ox O2 Delivery O2 Flow Rate FiO2 04/21/22 05:30 36.4 82 18 111/59 (76) 96 Room Air General Appearance: No Acute Distress Respiratory: Clear to Auscultation Cardiovascular: Regular Rate Abdominal: Soft (with uterus firm) Hospital Course Was the Problem List Reviewed?: Yes patient was admitted in the morning of April 20, 2022 for induction of labor. She underwent amniotomy with placement of scalp electrode. Fluid was noted to be clear. She continued labor course ultimately receiving epidural per anesthesia. She required Pitocin for augmentation. She had quickly dilated to completion and was allowed to push. She delivered a term viable female in the morning of April 20, 2022 without complications. Following delivery she underwent routine care orders. She had no complications during the remainder of hospital stay. She was ambulatory and did not complain of any chest pain or shortness of breath. Her hemoglobin on the morning of April 21 was 10.7 compared to admission of 12.2. She was felt ready for dismissal and all questions were answered in the morning of April 21, 2022. She will follow-up with myself at [facility] in 6 weeks. Labs Laboratory Tests 04/21/22 05:46: White Blood Count 10.4, Red Blood Count 3.52L, Hemoglobin 10.7L, Hematocrit 31L, Mean Corpuscular Volume 88, Mean Corpuscular Hemoglobin 30, Mean Corpuscular Hemoglobin Concent 35, Red Cell Distribution Width 14.0, Platelet Count 176, Mean Platelet Volume 9.1, Immature Granulocyte % (Auto) 1, Neutrophils (%) (Auto) 73, Lymphocytes (%) (Auto) 19, Monocytes (%) (Auto) 6, Eosinophils (%) (Auto) 1, Basophils (%) (Auto) 0, Neutrophils # (Auto) 7.6, Lymphocytes # (Auto) 2.0, Monocytes # (Auto) 0.6, Eosinophils # (Auto) 0.1, Basophils # (Auto) 0.0, Immature Granulocyte # (Auto) 0.1 Discharge Instructions to patient/family Please see electronic discharge instructions given to patient. Discharge Medications Reviewed and agree with Discharge Medication list on patient's Discharge Instruction sheet AMBIKA CARUSO MD Apr 21, 2022 08:04
[2022-04-21] MEDS: DOCUSATE SODIUM 100 MG (COLACE) CAP PO SCH (11:09)
[2022-04-21 11:10] VITALS: BP 123/82
--- NOTE | 2022-04-22 14:46 | Anesthesia-Regional Post-Op ---
Regional Patient Condition Mental Status: Alert, Oriented x3 Circulation: Same as Pre-Op Headache: Absent Sensation: Full Recovery Motor Block: Absent Post Op Complications Complications None Follow Up Care/Instructions Patient Instructions None needed. Anesthesia/Patient Condition Patient was seen yesterday at approximately 1100 and she was doing well, no complaints, stable vital signs, no apparent adverse anesthesia problems. No complications reported per nursing. YULISSA STUBBS DO Apr 22, 2022 14:46
== END 2022-04-21 13:00 | disposition home or self-care (01) | DRG 807 ==
LOC: LDRP 06:03
PROVIDERS: ADMIT Family Medicine; ATTEND Family Medicine
PROC: 10E0XZZ Delivery of Products of Conception, External Approach (ICD-10-PCS; principal; 2022-04-20)
PROC: 10907ZC Drainage of Amniotic Fluid, Therapeutic from Products of Conception, Via Natural or Artificial Opening (ICD-10-PCS; 2022-04-20)
PROC: 10H073Z Insertion of Monitoring Electrode into Products of Conception, Via Natural or Artificial Opening (ICD-10-PCS; 2022-04-20)
DX: O80 Encounter for full-term uncomplicated delivery (principal); Z37.0 Single live birth; Z3A.39 39 weeks gestation of pregnancy
CPT/HCPCS: 36415; 85025; 86780; 86850; 86900; 86901